=== PATIENT | female | born 1960 | race Caucasian/White ===

== ENCOUNTER → 2017-02-05 | Outpatient (CLI) | payer BC ==
[~2017-02-05] MED LIST: AMOX500C5 PO
[2017-02-05 18:04] VITALS: BP 125/62
--- NOTE | 2017-02-05 18:04 | Urgent Care T Sheet Gen (E) ---
Intake General Temperature (Fahrenheit): 98 Pulse: 65 Blood Pressure Systolic: 125 Blood Pressure Diastolic: 62 Respirations: 18 SPO2: 100 Chief Complaint: UC Ear/Nose/Throat Complaint Description of Symptoms This 56 y/o woman is here today because of sinus complaints. She says that it started 3 weeks ago but since this past weekend she has developed horrible right maxillary pain and pressure and pain also in her teeth on that side. She has had headache but no fever. She denies nausea. She has taken some tylenol but that has been it. Her PCP is Dr. Dale. Source: Patient Exam Limitations: No limitations History of Present Illness Onset & Duration: Weeks Timing: Still present Associated Symptoms: Nasal congestion, Sinus congestion Recent Trauma: No Similar Sympotms Previously: No Respiratory Constitutional Symptoms: No syptoms reported EENTM: See HPI Nose Congestion Throat pain (mild) Respiratory: No symptoms reported Cardiovascular: No symptoms reported Gastrointestinal/Abdominal: No symptoms reported Genitourinary: No symptoms reported Musculoskeletal: No symptoms reported Skin: No symptoms reported Neurological: No symptoms reported Hematologic/Lymphatic: No symptoms reported Immunologic/Allergies: No symptoms reported All Other Systems Reviewed Remaining Systems: All other systems reviewed with negative findings Physical Exam Physical Exam General Appearance: WD/WN No apparent distress Eyes, Ears, Nose, Throat Ex: PERRL/EOMI Normal ENT inspection (The right ear canal was full of cerumen obscuring view of the TM. ) TMs normal Pharynx normal Other (pain with percussion and palpation over the right maxillary sinus. ) Neck Exam: Non tender Full range of motion Supple Normal inspection Normal thyroid Respiratory Exam: Chest non-tender Lungs clear Normal breath sounds No respiratory distress No accessory muscles used Cardiovascular Exam: Regular rate, rhythm No edema No gallop No JVD No murmur Skin Exam: Normal color Warm/dry/intact No rashes No embolic lesions Neurologic/Psychiatric Exam: Oriented times 4 CN's II-X nml No motor deficits No sensory deficits Mood/affect nml Departure Urgent Care Impression Chief Complaint: UC Ear/Nose/Throat Complaint Impression: Primary Impression: Sinusitis, acute maxillary Departure Disposition: 01 HOME OR SELF-CARE Condition: Stable Referrals: GGII DALE MD (PCP) Additional Instructions: In addition to the prescription for Amoxil I have suggested a short acting decongestant such as sudafed. I have told the patient if her facial pain worsens to follow up with Dr. Dale for sinus x-ray. She may continue with Tylenol as well for pain. The patient was comfortable with the treatment plan as outlined. Scripts Amoxicillin (Amoxil)500 Mg [id number] Mg PO BID Infection #40 CAP Ref 0 2 capsules po bid for 10 days. Prov:MAHESH DE LOS SANTOS 02/05/17 End of report . MAHESH DE LOS SANTOS February 05, 2017 18:04
== END ==
LOC: MHUC 17:44
PROVIDERS: ATTEND Physician Assistant Medical
DX: J01.00 Acute maxillary sinusitis, unspecified (principal)
CPT/HCPCS: 99213